=== PATIENT | female | born 1985 | race Caucasian/White ===

== ENCOUNTER 2018-02-27 15:38 | Emergency (ER) | payer OTHER ==
[~2018-02-27] VITALS: Ht 154.9 cm; Wt 66.4 kg
[2018-02-27 17:10] VITALS: BP 136/57
== END 2018-02-27 17:10 | disposition home or self-care (01) ==
LOC: ED 15:38
DX: H57.12 Ocular pain, left eye (principal); K21.9 Gastro-esophageal reflux disease without esophagitis; Z98.51 Tubal ligation status